=== PATIENT | male | born 1975 | race Caucasian/White ===

== ENCOUNTER 2025-01-30 09:19 | Emergency (ER) | payer BC, SELFPAY ==
[2025-01-30 09:26] VITALS: BP 151/115
[2025-01-30 09:32] LABS: Glucose - Point of Care 284 mg/dl (70-99)
[2025-01-30 10:29] VITALS: BP 145/101
[2025-01-30 11:00] VITALS: BP 155/103
--- NOTE | 2025-01-30 11:25 | ED.GENMED ---
History of Present Illness
General
Chief Complaint: Blood Sugar Problem
Time Seen by Provider: 01/30/25 10:40
History of Present Illness
History of Present Illness:
49-year-old male with history of hypertension presenting to the emergency department for concern of high glucose. Patient reports for the past 2 weeks he has had generalized fatigue, decreased appetite, polyuria, polydipsia. His friend has
diabetes, he checked his sugar after fasting and it was greater than 200. Yesterday, he checked his sugar on his [id number]'s machine and it was over 600. Denies family history of diabetes. Denies personal history of diabetes. Denies any
associate abdominal pain. Denies fever. Denies chest pain or difficulty breathing or additional acute medical complaints
Phy Exam
Physical Exam
Physical Exam:
General: Well-appearing, no clinical signs of dehydration, nontoxic and in no acute distress
HEENT: protecting airway
Neck: appears supple
CV: Normal heart rate, regular rhythm
Resp: No accessory muscle use, no increased work of breathing, lungs clear to auscultation bilaterally
Abd: Soft and non-distended, no tenderness to palpation,
Extremities: No deformities, no swelling
Neuro: alert, no focal neurologic deficit
: deferred
Rectal: deferred
Psych: Normal affect
Skin: Intact
Course
Orders/Labs/Results
Orders:
Orders
01/30/25 11:09
0.9% Sodium Chloride 1000 ml [Nss] 1,000 ml IV BOLUS
01/30/25 11:47
B-Hydroxybutyrate Urgent
Complete Blood Count/With Diff Urgent
Comprehensive Metabolic Panel Urgent
Urinalysis Reflex To Culture Urgent
Date Specimen was Collected: 01/30/25
Time Specimen was Collected: 11:33
Urine Microscopic Reflex Cult Urgent
Venous Blood Gas Urgent
%Oxygen/Room Air: 21
01/30/25 14:15
METFORMIN HCl [Glucophage] 500 mg PO NOW STA
01/30/25 14:16
METFORMIN HCl [Glucophage] 500 mg .ROUTE .STK-MED ONE
Abnormal Lab Results
01/30/25 01/30/25 01/30/25
09:30 11:47 13:10
WBC 11.6 H 10^3/uL
(4.8-10.8)
Plt Count 452 H 10^3/uL
(130-400)
Absolute Neuts (auto) 9.1 H 10^3/uL
(1.4-6.5)
Absolute Monos (auto) 0.7 H 10^3/uL
(0.1-0.6)
Neutrophils % 78.7 H %
(42.2-75.2)
Lymphocytes % 12.6 L %
(20.5-51.1)
VBG pO2 80 H mmHg
(30-50)
Glucose 262 H mg/dl
(70-99)
AST 91 H U/L
(17-59)
ALT 127 H U/L
(0-50)
Urine Ketones 3+ A
(Negative)
Urine Bacteria (Reflex) Few A
(Negative)
Urine Glucose 4+ A
(Negative)
Urine Albumin (Reflex) 1+ A
(Neg - Trace)
B-Hydroxybutyrate 2.19 H mmol/L
(0.02-0.27)
POC Glucose 284 H mg/dl 232 H mg/dl
(70-99) (70-99)
01/30/25 11:47
01/30/25 11:47
Vital Signs
Initial and Last Documented VS:
Initial Vital Signs
Temp Pulse Resp BP Pulse Ox
97.9 F 92 16 151/115 98
01/30/25 09:26 01/30/25 09:26 01/30/25 09:26 01/30/25 09:26 01/30/25 09:26
Last Documented Vital Signs
Temp Pulse Resp BP Pulse Ox
97.9 F 92 16 155/103 97
01/30/25 09:26 01/30/25 09:26 01/30/25 09:26 01/30/25 11:00 01/30/25 11:30
MDM/Problems Addressed
MDM/Problems Addressed:
49-year-old male with history of high blood pressure presenting to the emergency department for elevated blood sugar. Vital signs on arrival significant for hypertension.
On exam patient resting comfortably, no acute distress. Patient is afebrile, nontoxic. [id number]-[id number] glucose obtained here is greater than 200. Ultimately suspect new onset diabetes diagnosis. Lower suspicion for DKA given patient's well
appearance and current blood glucose. Given no prior history however, will obtain laboratory analysis and start patient on IV fluids and reassess. Patient otherwise again nontoxic, without concern for underlying infection contributing to high
glucose
14:00 - Patient's labs are relatively unremarkable.� Mild elevation of beta hydroxybutyrate.� No sign of DKA.� No acidosis.� No anion gap.� Slight elevation of liver enzymes.� Sugar is slightly improved.� Ultimately feel stable for discharge with
initiation of metformin and follow-up with primary care doctor.� Did call [facility] where patient is following, made aware that patient will require close interval follow-up.� Did also alert diabetes furniture rental consultant, patient will get meter
and teaching prior to discharge.� Return precautions discussed and patient verbalized understanding
*Critical Care Note
Total Time (30-74mins, 75-104mins- exclusive of procedures): Not Applicable
ED Attending Note
-
Portions of this chart may have been created with voice recognition software.� Occasional wrong word or��sound alike� substitutions may have occurred due to the inherent limitations of voice recognition software.
Discharge Plan
Departure
Patient Disposition: Home (Routine Discharge)
Patient with high blood pressure during this ER visit?: Yes
Discharge Problem:
Diabetes mellitus, new onset, Hyperglycemia
Instructions: Type 2 Diabetes (DC), BLOOD PRESSURE
Referrals:
Binh Flores MD [Family Provider]
Activity Restrictions/Additional Instructions:
You were seen in the emergency department for high sugar
You were found to have diabetes and were started on metformin. You are scheduled to follow-up with your primary care doctor for continued management of your diabetes
Please follow-up closely with your primary care physician.
Return to the emergency department for any worsening of your symptoms, or any development of chest pain, difficulty breathing, abdominal pain with persistent vomiting and inability to tolerate food or liquid by mouth (concern for dehydration),
weakness, headache or confusion, fever greater than 100.4, or any additional symptoms that are concerning to you.
Thank you for choosing [facility].
Interventions
Interventions:
*Risk Screen - Suicide Last Done: 01/30/25 09:29
*General Assessment Last Done: 01/30/25 12:11
*Neglect/Abuse Screening Last Done: 01/30/25 09:29
*ED COVID-19 Vaccine History Last Done: 01/30/25 12:11
*Nursing Disposition Last Done: 01/30/25 14:30
ED- Neurological Assessment Last Done: 01/30/25 12:11
Discharge Date and Time
Discharge Date/Time: 01/30/25 14:30
Print Language: MACEDONIAN
[2025-01-30 11:30] VITALS: BMI 40.8
[2025-01-30] MEDS: NSS 1000 IV (11:52)
[2025-01-30 12:01] LABS: Urine Albumin 1+ (Neg - Trace); Urine Bilirubin Negative (Negative); Urine Character Clear (Clear); Urine Color Yellow; Urine Glucose 4+ (Negative); Urine Ketone 3+ (Negative); Urine Leukocyte Negative (Negative); Urine Nitrite Negative (Negative); Urine Occult Blood Negative (Negative); Urine Specific Gravity 1.025 (<1.030); Urine Urobilinogen Negative (Neg - 1+)
[2025-01-30 12:02] LABS: % Basophils 0.6 % (0-2); % Eosinophils 1.5 % (0-6); % Immature Granulocytes 0.3 % (0-0.5); % Lymphocytes 12.6 % (20.5-51.1); % Monocytes 6.3 % (1.7-9.3); % Neutrophils 78.7 % (42.2-75.2); Absolute Basophils 0.1 10^3/uL (0-0.2); Absolute Eosinophils 0.2 10^3/uL (0-0.7); Absolute Lymphocytes 1.5 10^3/uL (1.2-3.4); Absolute Monocytes 0.7 10^3/uL (0.1-0.6); Absolute Neutrophils 9.1 10^3/uL (1.4-6.5); Hematocrit 42.7 % (39.0-52.0); Hemoglobin 14.6 g/dL (13.0-18.0); Mean Corp Hgb Conc. 34.2 g/dL (33.0-37.0); Mean Corpuscular Volume 81.8 fL (80.0-94.0); Mean Platelet Volume 9.5 fL (7.4-10.4); Nucleated Red Blood Cells % 0 % (-); Platelet Count 452 10^3/uL (130-400); Red Blood Cell Count 5.22 10^6/uL (4.70-6.10); Red Cell Dist. Width 12.1 % (11.5-14.5); White Blood Cell Count 11.6 10^3/uL (4.8-10.8)
[2025-01-30 12:07] LABS: Urine Bacteria Few (Negative); Urine Squamous Cell 0-2 /LPF (Few)
[2025-01-30 12:08] LABS: Urine Red Blood Cell 0-2 /HPF (0-2)
[2025-01-30 12:16] LABS: ALT (SGPT) 127 U/L (0-50); AST (SGOT) 91 U/L (17-59); Albumin 4.6 g/dl (3.5-5.0); Alkaline Phosphatase 90 U/L (38-126); Blood Urea Nitrogen 14 mg/dl (9-20); Carbon Dioxide 26 mmol/L (22-30); Chloride 102 mmol/L (98-107); Estimated Creatinine Clearance > 125 ml/min; Glucose 262 mg/dl (70-99); Potassium 4.6 mmol/L (3.5-5.1); Sodium 136 mmol/L (135-145); Total Bilirubin 0.7 mg/dl (0.2-1.3); Total Protein 8.1 g/dl (6.3-8.2); eGFR > 60.00
[2025-01-30 12:19] LABS: Venous Blood Gas B.E. 0.5 mmol/L (-4 to +4); Venous Blood Gas HCO3 25.4 mmol/L (22-27); Venous Blood Gas O2 Sat % 98.2 %; Venous Blood Gas pCO2 41 mmHg (35-48); Venous Blood Gas pO2 80 mmHg (30-50)
[2025-01-30 12:22] LABS: B-Hydroxybutyrate 2.19 mmol/L (0.02-0.27)
[2025-01-30 13:11] LABS: Glucose - Point of Care 232 mg/dl (70-99)
--- NOTE | 2025-01-30 17:29 | DOWNTIME ---
There was a [employer] Supervisor Downtime on 01/30/2025 from 1230 to 01/30/2025 at 1550. Downtime documentation of patient's care, including medication administrations, has been reconciled in the electronic record per guidelines. Refer to the
patient's paper chart under the miscellaneous tab to see printed paper medication records and downtime forms.
--- NOTE | 2025-01-31 08:03 | PTCARENOTE ---
01/30/2025 DIABETES EDUCATION
I met with Jesús to review diabetes management.
He was sent to ER by his PCP at [facility]. Fasting glucose 250, post prandial glucose 600 mg/dL; was experiencing frequent thirst, he is newly diagnosed with T2D and has been prescribed Metformin upon discharge. He states for 2
weeks he was experiencing frequent thirst, has intermittent neuropathy and lost 40 lbs in 2 months (is now at a weight of 260 lbs).
I educated on physiology of T2D, organ damage, managing with medications, monitoring BG, nutrition, activity, sleep and managing stress. I reinforced signs of hyperglycemia, hypoglycemia and hypoglycemia protocol; BS parameters and recommended HbA1c
goals, glucometer and CGM instructions, glucose tracker, medic alert bracelet and outpatient DSME program. Written material provided.
I educated and reviewed using Contour Next glucometer, member acknowledged understanding with a self demonstration of checking BS. Provided him with a Contour Next sample kit.
Encouraged patient to follow up with his PCP for post d/c appointment and to monitor medication and blood glucose levels, and to request additional glucose testing supplies. Provided list of endocrinologists if desired, to contact insurance
company to verify in network status. Patient verbalized understanding.
== END 2025-01-30 14:30 | disposition home or self-care (01) ==
LOC: EMR 09:19
PROVIDERS: EMERGENCY PHYSICIAN Student in an Organized Health Care Education/Training Program; FAMILY PHYSICIAN Family Medicine
DX: E11.65 Type 2 diabetes mellitus with hyperglycemia (principal); I10 Essential (primary) hypertension
CPT/HCPCS: 99284; 96360; 80053; 81003; 81015; 82010; 82805; 82962; 85025